=== PATIENT | female | born 1950 | race Caucasian/White ===

== ENCOUNTER 2023-07-02 07:46 | Day surgery (SDC) | payer MEDICARE, BC, SELFPAY ==
[2023-07-02] VITALS (10 sets, daily range): BP systolic 134–153; BP diastolic 63–89; PULSE 83–96; RESP 14–18; TEMP 36.4–36.9; O2SAT 90–96; BMI 31.6
[2023-07-02] MEDS: Lactated Ringers 1,000 ML 15 ML IV (08:22)
--- NOTE | 2023-07-02 09:25 | BR_PTH ---
PATIENT: KENNETH MATTHEW [place] [facility] [id number] AGE/SX: 72/F ROOM: RE07/02/[address]: Dr. Selena Gee MD : 1950 BED: DIS: 07/02/2023 SPEC #: [id number] RECD: 07/02/23 15:52 STATUS: NILAM RELakhwinder #: [id number] MICHAEL: 07/02/23 09:[address]: Selena Gee DEPT: SURGICAL PATHOLOGY RECD BY: Teresita Piña ENTERED: 07/03/23 07:35 SP TYPE: MAMOPLASTY OTHR DR: Susana Ron Tissues: A - Right breast, NOS B - Left breast, NOS Procedures: Surgery Specimen Level IV HEADER OPERATION: Removal, breast implants, capsulectomy PRE-OP DIAGNOSIS: Ruptured left breast implant, painful breasts, breast implant capsular contracture TISSUE SUBMITTED: A - Right breast implant and capsule, B - Left breast implant and capsule MICROSCOPIC DIAGNOSIS A. Right breast tissue and capsule, excision: Fibrosis and histiocytic reaction to nonpolarizable material (clinically silicone). Mild chronic inflammation. B. Left breast tissue and capsule, excision: Fibrosis and histiocytic reaction to nonpolarizable material (clinically silicone). Mild chronic inflammation. Focal dystrophic microcalcifications. AM:zhane 07/06/2023 MICROSCOPIC DESCRIPTION Slides are reviewed. GROSS DESCRIPTION A - Received in fixative is one container labeled with the patient's name and designated right breast implant and capsule. The specimen consists of ruptured capsule with extruded silicone material measuring 12.0 x 10.0 x 3.0 cm. Letter/number designations on the implant are not visible. Also present in the specimen container are multiple irregular fragments of yellow to adams fibrous capsule tissue ranging in size from 1.0 to 9.0 cm in greatest dimension. Serial sections do not reveal mass lesions. Commercial Real Estate Appraiser sections are submitted in four cassettes. B - Received in fixative is one container labeled with the patient's name and designated left breast implant and capsule. The specimen consists of ruptured capsule with extruded silicone material measuring 13.0 x 10.0 x 3.0 cm. Letter/number designations on the implant are not visible. Also present in the specimen container are multiple irregular fragments of yellow to adams fibrous capsule tissue ranging in size from 1.0 to 8.0 cm in greatest dimension. Serial sections do not reveal mass lesions. Commercial Real Estate Appraiser sections are submitted in four cassettes. / AM:zhane 07/03/2023 TC:5 CPT: 62663 x2
--- NOTE | 2023-07-02 10:14 | PCM.HP.BLA ---
History and Physical Date of Admission: 07/02/23 The patient is examined. There are no changes to exam and medical clearance of 06/25/23. Informed consent was obtained for bilateral silicone implant removal and capsulectomies. Assessment & Plan Assessment/Plan (1) Ruptured left breast implant: (2) Painful breasts: (3) Breast implant capsular contracture: PLAN: Plan Pt for bilateral breast implant capsulectomies and removal of silicone implants.
[2023-07-02] MEDS: Cefazolin 2 GM in 0.9% Normal Saline (100mL Bag) 100 ML IV (10:20)
[2023-07-02] MEDS: Lidocaine 1% /Epi 1:100 (50ml) 50 ML VIAL (11:02)
[2023-07-02] MEDS: Gentamicin 80 MG/2 ML Vial (11:02)
[2023-07-02] MEDS: Bupivacaine 0.25% 30 ML Vial (14:30)
--- NOTE | 2023-07-02 14:45 | DCINST_ITS ---
Discharge Instructions Diet Discharge Diet: No restrictions Activity Additional Activity Instructions:: Keep back elevated as directed to decrease swelling and bleeding. Dressing / Incision Additional Dressing/Incision Instructions:: Empty and record ERIN output 2-3 x a day. Bring this record with you for your appointment. Follow Up Care Please Follow Up With: Selena Gee MD When: in 1 week Test Results: Test results from this visit will be discussed in further detail at your follow- up appointment, if applicable. Discharge Plan Admission Attending Provider: Selena Gee Primary Care Provider: Susana Ron Discharge Orders/Prescriptions Prescriptions: No Action pravastatin 20 mg tablet 20 mg PO QHS Patient Comments: TAKE 1 TABLET BY MOUTH EVERY DAY AT BEDTIME valsartan 160 mg tablet 160 mg PO QHS Patient Comments: TAKE 1 TABLET BY MOUTH DAILY levothyroxine 25 mcg tablet 25 mcg PO DAILY Patient Comments: TAKE 1 TABLET BY MOUTH DAILY cholecalciferol (vitamin D3) 25 mcg (1,000 unit) tablet 25 mcg PO DAILY cetirizine [All Day Allergy (cetirizine)] 10 mg tablet 10 mg PO DAILY multivitamin Tablet 1 tab PO DAILY L.acid-L.rham-B.breve-S.therm 3 billion cell tablet,chewable 1 tab PO DAILY Referrals / Follow Up: Susana Ron [Primary Care Provider] - Disposition Disposition (needs filled in before D/C Order can be placed): Home, Self Care
--- NOTE | 2023-07-02 14:49 | OP.PCM_ITS ---
Problems Associated Problem List Diagnoses (1) Ruptured left breast implant: (2) Painful breasts: (3) Breast implant capsular contracture: Report of Operation Date of Procedure: 07/02/23 Pre-Operative Diagnosis: Bilateral breast implant capsular contraction, evidence of left implant rupture, probable right implant rupture Post-Operative Diagnosis: same Surgery/Procedure Performed:: Bilateral implant capsulectomy, removal of silicone implant material Surgeon: Selena Gee landscaping specialist: ELYSIA VALERAwelt insole channeler Type of Anesthesia: General Specimen's removed: Ruptured implant materials and will-implant capsules Drains: ERIN x2 Estimated Blood Loss (mL): <75cc Description of Procedure: The patient presents for removal of bilateral silicone implants placed 43 years ago and capsules. The expected pre-, intra, and postoperative course were rev iewed. The patient elects not to have them replaced at this time. She is aware of the need for the drain. Informed consent was obtained. The patient is marked in the preop holding area prior to surgery. The patient is brought to the operating room and placed under general anesthesia in the supine position. The breast and chest are prepped and draped in the usual sterile fashion. We initially began with making an incision in the inframammary crease. This is carried down through the subcutaneous tissue until the capsule of the implant is identified. Dissection then continues over the an terior surface of the implant to remove as much of the capsule as possible. The left implant is found to have extracapsular rupture and numerous foci of silicone are found outside the capsule. The anterior surface of the capsule is totally removed. The posterior surface of the capsule was thin and attenuated. Some of this capsule is retained. This posterior portion of the capsule was treated to allow the anterior surface to adhere. All visible silicone is removed. The wound is copiously irrigated with antibiotic solution and washed out to remove as many particles as possible. Meticulous hemostasis is provided with cautery. A ERIN drain is placed within the pocket and brought out through the lateral aspect of the incision. This is anchored in place with a nylon suture. The incision is then closed with V-Loc sutures in a 3 layer fashion with the skin closed with a subcuticular suture. We then directed our attention to the right side in an identical fashion. The capsule is intact for the most part on the right side. It appears that there is some intracapsular silicone rupture particularly inferiorly and superiorly. All visible silicone was removed. A copious washout of the pocket was performed. The aspect of the pocket was removed. Meticulous hemostasis is assured. A ERIN drain is placed within the pocket and brought out laterally through the incision. This is anchored in place with a nylon suture. The skin edges were then approximated with a 3 layer closure including a subcuticular skin closure. Quarter percent plain Marcaine is injected along the incisions. Xeroform gauze were used to dress the incisions along with fluff gauze. She is placed in a surgery bra. She tolerated the procedure well and was taken to the recovery area in an awake and stable condition. Needle and sponge counts are correct. Complications none Admit VTE Documentation VTE Mechan Device Prophylaxis: SCD's
[2023-07-02] MEDS: Oxycodone/Apap 5/325 Tablet PO (17:02)
== END 2023-07-02 18:10 | disposition home or self-care (01) ==
LOC: SDC 07:49 → AC 07:51
PROVIDERS: Referring Provider Plastic Surgery; Visit Provider Plastic Surgery
PROC: (CPT 19371; principal; 2023-07-02 09:10)
DX: N64.4 Mastodynia (principal); Z98.82 Breast implant status; T85.43XA Leakage of breast prosthesis and implant, initial encounter; T85.44XA Capsular contracture of breast implant, initial encounter; I10 Essential (primary) hypertension; E03.9 Hypothyroidism, unspecified; Z87.19 Personal history of other diseases of the digestive system; Z87.891 Personal history of nicotine dependence
CPT/HCPCS: 19371; 00402; 88305; J7120; C1729; J2405